=== PATIENT | female | born 1985 | race Two or more races ===

== ENCOUNTER 2024-11-27 07:22 | Emergency (ER) | payer MEDICAID ==
[~2024-11-27] VITALS: Ht 165.1 cm; Wt 86.2 kg
[2024-11-27 08:09] LABS: BASOPHILS % (AUTO) 0.3 % (0.0-2.0); EOSINOPHILS # (AUTO) 0.2 K/uL (0.0-0.7); HEMATOCRIT 38 % (33-45); HEMOGLOBIN 12.5 g/dL (11.5-14.8); LYMPHOCYTES # (AUTO) 2.3 K/uL (0.8-4.8); LYMPHOCYTES % (AUTO) 20.7 % (20.0-44.0); MEAN CORPUSCULAR HEMOGLOBIN 28 PG (26.0-33.0); MEAN CORPUSCULAR HGB CONC 33 g/dl (31.0-36.0); MEAN CORPUSCULAR VOLUME 84 fL (82-100); MONOCYTES # (AUTO) 0.8 K/uL (0.1-1.30); NEUTROPHILS # (AUTO) 7.8 K/uL (1.8-8.9); PLATELET COUNT (AUTO) 380 K/uL (150-450); RED CELL DISTRIBUTION WIDTH 14.8 % (11.5-15.0); WHITE BLOOD COUNT (AUTO) 11.2 K/uL (4.3-11.0)
[2024-11-27 08:28] LABS: ALBUMIN 3.6 g/dL (3.4-5.0); BILIRUBIN,DIRECT 0.1 mg/dL (0.0-0.2); BILIRUBIN,TOTAL 0.2 mg/dL (0.2-1.0); CALCIUM, SERUM 8.5 mg/dL (8.5-10.1); CREATININE 0.8 mg/dL (0.6-1.3); POTASSIUM 3.7 mmol/L (3.5-5.1); TOTAL PROTEIN, SERUM 7.2 g/dL (6.4-8.2)
[2024-11-27 09:25] VITALS: BP 128/80; TEMP 98.6; O2SAT 99
== END 2024-11-27 09:26 | disposition home or self-care (01) ==
LOC: ER 07:30
DX: K62.5 Hemorrhage of anus and rectum (principal)
CPT/HCPCS: 36415; 80048-TC; 80076-TC; 83690-TC; 84702-TC; 85025-TC; A4649

== ENCOUNTER 2025-08-01 00:02 | Emergency (ER) | payer MEDICAID ==
[~2025-08-01] VITALS: Ht 162.6 cm; Wt 90.7 kg
[2025-08-01 00:28] VITALS: BP 132/75; TEMP 97.9; O2SAT 98
[2025-08-01] MEDS ORDERED: AMOX-430 PO (00:37)
[2025-08-01] MEDS ORDERED: HYDR-4209 PO (00:37)
[2025-08-01] MEDS ORDERED: HYDROCODONE/APAP 5/325MG TABLET ONE (00:43)
[2025-08-01] MEDS: HYDROCODONE/APAP 5/325MG TABLET PO ONE (00:46)
== END 2025-08-01 00:57 | disposition home or self-care (01) ==
LOC: ER 00:09
DX: K08.89 Other specified disorders of teeth and supporting structures (principal)